=== PATIENT | female | born 1935 | race Caucasian/White ===

== ENCOUNTER → 2018-08-08 | Outpatient (CLI) | payer MEDICARE, OTHER ==
[~2018-08-08] MED LIST: AMLODIPINE BESYL5 MG PO; ATORVASTATIN CA20 MG PO; GABAPENTIN300 MG PO; KETOPROFEN200 MG PO; LORAZEPAM1 MG PO; LORTAB 7.5-5001 EACH PO; MINERAL OIL PO; TYLENOL WITH C1 EACH PO; [UNRECOGNIZED DRUG - OTHER] PO
--- NOTE | 2018-08-09 08:33 | Diagnostic Imaging Report ---
Examination: MRI SPINE LUMBAR WITHOUT CONTRAST History: Left-sided low back pain with radiation to lower extremity. Comparison studies: None Technique: Sagittal, coronal and axial T2 , sagittal T1 and STIR; axial spin density oblique. Findings: Number of lumbar vertebral bodies: Five. Alignment: Straightening of normal lordosis. No scoliosis. Soft tissues: A 1.9 cm T2 hyperintense lesion is seen in the interpolar right kidney, most probably representing a cyst. Posterior paraspinal soft tissues and muscles: No abnormality. Lower thoracic cord: Normal in signal and morphology. The tip of the conus is at T12. Cauda equina: No masses. No arachnoiditis. Vertebrae: No fractures, infection or neoplasm. Degenerative changes: L1-L2: Retrolisthesis (6.5 mm). Diffuse disc bulge and severe bilateral facet arthropathy which results in moderate right and severe left neural foraminal narrowing. No canal stenosis. L2-L3: Mild disc bulge and severe bilateral facet arthropathy. No foraminal or canal stenosis. L3-L4: Diffuse disc bulge, ligamentum flavum thickening and severe bilateral facet arthropathy result in mild right and severe left neural foraminal narrowing and severe canal stenosis. L4-L5: Asymmetric to the left disc bulge, mild ligamentum flavum thickening and severe bilateral facet arthropathy result in mild bilateral neural foraminal narrowing. Prior right laminectomy. No canal stenosis. L5-S1: Retrolisthesis (3 mm). Diffuse disc bulge and moderate bilateral facet arthropathy results in moderate bilateral neural foraminal narrowing and mild canal stenosis. IMPRESSION: 1. Retrolisthesis of L1 on L2 and L5 on S1, as above. 2. 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 3. Moderate right and severe left foraminal narrowing at L1-L2, severe left foraminal narrowing at L3-L4 and moderate bilateral foraminal narrowing at L5-S1. Signed by: Dr. Anastasia Rivera M.D. on 08/09/2018 8:30 AM
== END ==
LOC: MRI 14:32
PROVIDERS: ATTEND Internal Medicine
DX: M54.32 Sciatica, left side (principal)
CPT/HCPCS: 72148